=== PATIENT | male | born 1960 | race Caucasian/White ===

== ENCOUNTER → 2019-08-21 | Outpatient (CLI) | payer OTHER ==
[~2019-08-21] MED LIST: DAYPRO600 M1 PO; MEDROL DOSEPAK4 MG PO; ROBAXIN750 MG PO; VICODIN 500 MG-1 TAB PO
[2019-08-21 11:11] LABS: PHOSPHOROUS 2.6 mg/dL (2.5-4.9); URIC ACID 4.7 mg/dL (3.5-7.2)
== END | disposition home or self-care (01) ==
LOC: LAB 09:48
PROVIDERS: Urology
DX: N20.0 Calculus of kidney (principal)